=== PATIENT | female | born 1950 | race Caucasian/White ===

== ENCOUNTER 2018-07-24 07:28 | Day surgery (SDC) | payer MEDICARE, OTHER ==
[~2018-07-24 07:28] MED LIST: CYCLOPENTOLATE 1% OPHTH DROPS 2 ML ONE; KETOROLAC 0.45% OPHTH DROPS ONE; PHENYLEPHRINE 2.5% OPHTH 2 ML DROPS ONE; PROPARACAINE 0.5% OPHTH DROPS 15 ML ONE
[2018-07-24] MEDS ORDERED: LACTATED RINGERS 500 ML IV ONE (07:50)
[2018-07-24] MEDS ORDERED: BRIMONIDINE 0.2% OPHTH DROPS 5 ML ONE (07:52)
[2018-07-24] MEDS ORDERED: TIMOLOL 0.5% OPHTH DROPS ONE (07:52)
[2018-07-24] MEDS ORDERED: EPINEPHrine 1 MG/ML AMP ONE (07:52)
[2018-07-24] MEDS ORDERED: VANCOMYCIN OPHTHALMI 8MG/0.8ML 8 MG/0.8 ML SYRINGE IO ONE (07:52)
[2018-07-24] MEDS ORDERED: TRIAMCIN/MOXIFLOX OPHTHALMIC 0.6 ML VIAL IO ONE (07:52)
[2018-07-24] MEDS ORDERED: BSS/LIDOCAINE/EPINEPHRINE 1 ML SYRINGE ONE (07:52)
--- NOTE | 2018-07-24 07:59 | ANESTHESIA ---
Pre-Anesthesia VS, & Labs - Diagnosis R senile combined cataract - Procedure R extraction cataract with IOL Height 5 ft 9 in Weight (kg) 72.3 kg 5'9" 72kg - NPO >8 hours Last Fluid Intake: sips H2O with lisinopril - Is Patient ?: No Home Medications and Allergies Home Medications: Ambulatory Orders Medication Instructions Recorded Confirmed Levothyroxine [Synthroid] 75 mcg PO QDAC 07/24/18 07/24/18 Lisinopril 10 mg PO DAILY 07/24/18 07/24/18 Levothyroxine [Synthroid] 75 mcg PO QDAC 07/24/18 Lisinopril 10 mg PO DAILY 07/24/18 Allergies/Adverse Reactions: Allergies Allergy/AdvReac Type Severity Reaction Status Date / Time Penicillins Allergy Hives Verified 07/24/18 07:52 codeine AdvReac Nausea Verified 07/24/18 07:52 Sulfa (Sulfonamide AdvReac intestinal Verified 07/24/18 07:52 Antibiotics) issues Anes History & Medical History - Anesthetic History Anesthesia Complications: reports: No previous complications Family history of Anesthesia Complications: Denies Family history of Malignant Hyperthermia: Denies - Medical History Cardiovascular: reports: Hypertension Pulmonary: reports: None Gastrointestinal: reports: None Urinary: reports: None Musculoskeletal: reports: Osteoarthritis Endocrine/Autoimmune: reports: HyPOthyroidism Psychosocial: reports: No issues indicated - Surgical History Orthopedic: Hip replacement (bilat), Other (knee scope) Exam General: Alert, Oriented x3, Cooperative, No acute distress Dental: WNL Mouth Opening: Greater than 4 Fingerbreadths Neck Mobility: Normal Mallampati classification: I Thyromental Distance: 4-6 cm Respiratory: Lungs clear, Normal breath sounds, No respiratory distress, No accessory muscle use Cardiovascular: Regular rate, Normal S1, Normal S2, No murmurs Mental/Cognitive Status: Alert/Oriented X3, Normal for patient Cognitive Status: Within normal limits Plan Anesthesia Type: MAC Consent for Procedure(s) Verified and Reviewed: Yes Code Status: Attempt Resuscitation ASA classification: 2-Mild systemic disease Is this case an emergency?: No
[2018-07-24] MEDS ORDERED: PHENYLEPHRINE 2.5% OPHTH 2 ML DROPS RIGHTEYE ONE (08:00)
[2018-07-24] MEDS ORDERED: KETOROLAC 0.45% OPHTH DROPS RIGHTEYE ONE (08:00)
[2018-07-24] MEDS ORDERED: PROPARACAINE 0.5% OPHTH DROPS 15 ML RIGHTEYE ONE (08:00)
[2018-07-24] MEDS ORDERED: CYCLOPENTOLATE 1% OPHTH DROPS 2 ML RIGHTEYE ONE (08:00)
[2018-07-24] MEDS ORDERED: MIDAZOLAM 2 MG/2 ML VIAL IVP ONE (08:30)
[2018-07-24] MEDS ORDERED: fentaNYL 100 MCG/2 ML VIAL IVP ONE (08:30)
[2018-07-24] MEDS ORDERED: BRIMONIDINE 0.2% OPHTH DROPS 5 ML OPTH ONE (08:37)
[2018-07-24] MEDS ORDERED: EPINEPHrine 1 MG/ML AMP IVP ONE (08:37)
[2018-07-24] MEDS ORDERED: BSS/LIDOCAINE/EPINEPHRINE 1 ML SYRINGE IO ONE (08:38)
[2018-07-24] MEDS ORDERED: CHONDR SULF/HYALURONATE SYRINGE IO ONE (08:38)
[2018-07-24] MEDS ORDERED: TIMOLOL 0.5% OPHTH DROPS OPTH ONE (08:38)
[2018-07-24] MEDS ORDERED: TRIAMCIN/MOXIFLOX/VANCO 1 ML VIAL IO ONE (08:39)
[2018-07-24 09:27] VITALS: BP 138/78
--- NOTE | 2018-07-24 10:32 | OPERATIVE REPORT ---
DATE OF SERVICE: 07/24/2018 Physician: Roger Milton MD PREOPERATIVE DIAGNOSIS: Visually significant cataract, right eye. This was her first cataract surge ry. POSTOPERATIVE DIAGNOSIS: Visually significant cataract, right eye. This was her first cataract surg shy. NAME OF PROCEDURE: Phacoemulsification with posterior chamber intraocular lens implant, right eye. SURGEON: Roger Milton MD ANESTHESIA: Monitored anesthesia care. COMPLICATIONS: None. OPERATIVE INDICATIONS: This is a 67-year-old woman with progressive vision loss in the right eye due to 2+ nuclear sclerotic and 1+ posterior subcapsular cataract. Best corrected visual acuity was 20/ 20, with glare to 20/40 in the right eye. Indications for surgery are overall decrease in vision, di fficulty seeing words on the computer screen, difficulty reading; difficulty seeing words, closed cap tions or game scores on TV, difficulty seeing street signs, difficulty driving in low light or night, and difficulty driving at night because of headlights from other vehicles. She was consented at [facility] concerning risks and benefits of cataract surgery, after which she expressed a desire to proceed with surgery. OPERATIVE PROCEDURE: The patient was taken to OR #3 and placed under monitored anesthesia care. Khris gical timeout was conducted confirming correct patient, correct procedure, and correct surgical site. She was given topical anesthesia, and then prepped and draped in the usual sterile fashion. The ey e was entered at the 12 and 9 o'clock positions. Intracameral Shugarcaine was injected into the ante rior chamber, followed by Viscoat. A continuous-tear curvilinear capsulorrhexis was performed. The nucleus was hydrodissected and phacoemulsified. Cortex was evacuated using automated infusion and as piration. Provisc was injected in the capsular bag, and a 12.5 diopter intraocular lens inserted in the bag. Approximately 0.8 mL of a mixture of triamcinolone, moxifloxacin and vancomycin was injecte d subconjunctivally in the superior quadrant for infection and inflammation prophylaxis. I and A was used to evacuate the viscoelastic materials. The eye was inflated to physiologic pressure using bal anced salt solution, and found to be watertight. The patient was taken from the operating room in go od condition and given postoperative instructions. TD: 07/24/2018 09:00
== END 2018-07-24 07:29 | disposition home or self-care (01) ==
LOC: SDS 07:28
PROVIDERS: ATTEND Ophthalmology
PROC: 08RJ3JZ Replacement of Right Lens with Synthetic Substitute, Percutaneous Approach (ICD-10-PCS; principal; 2018-07-24 08:30)
DX: H25.811 Combined forms of age-related cataract, right eye (principal); I10 Essential (primary) hypertension; E03.9 Hypothyroidism, unspecified; Z85.3 Personal history of malignant neoplasm of breast
CPT/HCPCS: 66984; A9270; J3490; V2632

== ENCOUNTER 2018-09-18 09:05 | Day surgery (SDC) | payer MEDICARE, OTHER ==
[~2018-09-18 09:05] MED LIST changes: +BRIMONIDINE 0.2% OPHTH DROPS 5 ML ONE; +BSS/LIDOCAINE/EPINEPHRINE 1 ML SYRINGE ONE; +EPINEPHrine 1 MG/ML AMP ONE; +TIMOLOL 0.5% OPHTH DROPS ONE; +TRIAMCIN/MOXIFLOX OPHTHALMIC 0.6 ML VIAL IO ONE; +VANCOMYCIN OPHTHALMI 8MG/0.8ML 8 MG/0.8 ML SYRINGE IO ONE
[2018-09-18] MEDS ORDERED: LACTATED RINGERS 500 ML IV ONE (10:11)
[2018-09-18] MEDS ORDERED: PROPARACAINE 0.5% OPHTH DROPS 15 ML LEFTEYE ONE ×3 (10:17→11:41)
[2018-09-18] MEDS ORDERED: KETOROLAC 0.45% OPHTH DROPS LEFTEYE ONE ×2 (10:17→10:20)
[2018-09-18] MEDS ORDERED: PHENYLEPHRINE 2.5% OPHTH 2 ML DROPS LEFTEYE ONE ×2 (10:17→10:20)
[2018-09-18] MEDS ORDERED: CYCLOPENTOLATE 1% OPHTH DROPS 2 ML LEFTEYE ONE ×2 (10:17→10:20)
--- NOTE | 2018-09-18 10:59 | ANESTHESIA ---
Pre-Anesthesia VS, & Labs - Diagnosis Left senile combined cataract - Procedure Left phaco with IOL implant Vital Signs: Temp Pulse Resp BP Pulse Ox 36.4 C L 73 16 179/99 H 98 09/18/18 10:11 09/18/18 10:11 09/18/18 10:11 09/18/18 10:11 09/18/18 10:11 Height 5 ft 10 in Weight (kg) 72 kg - NPO >8 hours - Is Patient ?: No Home Medications and Allergies Levothyroxine [Synthroid] 75 mcg PO QDAC 07/24/18 Lisinopril 10 mg PO DAILY 07/24/18 Allergies/Adverse Reactions: Allergies Allergy/AdvReac Type Severity Reaction Status Date / Time Penicillins Allergy Hives Verified 09/18/18 10:12 codeine AdvReac Nausea Verified 09/18/18 10:12 Sulfa (Sulfonamide AdvReac intestinal Verified 09/18/18 10:12 Antibiotics) issues Anes History & Medical History - Anesthetic History Anesthesia Complications: reports: No previous complications Family history of Anesthesia Complications: Denies Family history of Malignant Hyperthermia: Denies - Medical History Cardiovascular: reports: Hypertension Pulmonary: reports: None Gastrointestinal: reports: None Urinary: reports: None Neuro: reports: None Musculoskeletal: reports: Osteoarthritis Endocrine/Autoimmune: reports: HyPOthyroidism Blood Disorders: reports: None Skin: reports: None Smoking Status: Never smoker Psychosocial: reports: No issues indicated - Surgical History Gynecologic: Other Orthopedic: Hip replacement, Other Exam General: Alert Dental: WNL Neck Mobility: Normal Mallampati classification: I Thyromental Distance: greater than 6 cm Respiratory: Lungs clear Cardiovascular: Regular rate Neurological: Normal speech Mental/Cognitive Status: Alert/Oriented X3 Cognitive Status: Within normal limits Plan Anesthesia Type: MAC Consent for Procedure(s) Verified and Reviewed: Yes Code Status: Attempt Resuscitation ASA classification: 2-Mild systemic disease Is this case an emergency?: No
[2018-09-18] MEDS ORDERED: MIDAZOLAM 2 MG/2 ML VIAL IVP ONE (11:39)
[2018-09-18] MEDS ORDERED: TIMOLOL 0.5% OPHTH DROPS OPTH ONE (11:40)
[2018-09-18] MEDS ORDERED: CHONDR SULF/HYALURONATE SYRINGE IO ONE (11:40)
[2018-09-18] MEDS ORDERED: EPINEPHrine 1 MG/ML AMP IVP ONE (11:40)
[2018-09-18] MEDS ORDERED: BRIMONIDINE 0.2% OPHTH DROPS 5 ML OPTH ONE (11:40)
[2018-09-18] MEDS ORDERED: BSS/LIDOCAINE/EPINEPHRINE 1 ML SYRINGE IO ONE (11:41)
[2018-09-18 12:11] VITALS: BP 160/89
--- NOTE | 2018-09-18 13:09 | OPERATIVE REPORT ---
DATE OF SERVICE: 09/18/2018 Physician: Roger Milton MD PREOPERATIVE DIAGNOSIS: Visually significant cataract, left eye. Cataract surgery was performed on the right eye in 07/24/2018. POSTOPERATIVE DIAGNOSIS: Visually significant cataract, left eye. Cataract surgery was performed on the right eye in 07/24/2018. PROCEDURE: Phacoemulsification with posterior chamber intraocular lens implant, left eye with laser assist. ANESTHESIA: Monitored anesthesia care. COMPLICATIONS: None. OPERATIVE INDICATIONS: This is a 67-year-old woman with progressive vision loss in the left eye due to 2+ nuclear sclerotic, 1-2+ cortical, and 1+ posterior subcapsular cataract. Best corrected visual acuity was 20/20 with glare to 20/40 in the left eye. INDICATIONS FOR SURGERY: Overall decrease in vision, difficulty seeing words on the computer screen, difficulty reading, difficulty seeing words, closed captions or game scores on TV; difficulty seeing street signs, difficulty driving in low light or at night, difficulty driving at night because of he adlights from other vehicles and/or street lights, and difficulty with glare or bright lights in any situation. She was consented at length concerning risks and benefits of cataract surgery, after whic h she expressed a desire to proceed with surgery. OPERATIVE PROCEDURE: The patient was taken to OR #3 and placed under monitored anesthesia care. Khris gical timeout was conducted confirming correct patient, correct procedure, and correct surgical site. She was placed under the LenSx laser and her eye was docked to the laser interface. The laser perf ormed a capsulotomy, lens softening, phaco wounds and arcuate keratotomy incisions. She was then mov ed to the operating microscope, given topical anesthesia, and then prepped and draped in the usual [facility] fashion. The eye was entered at the 6 and 3 o'clock positions. Intracameral Shugarcaine was i njected into the anterior chamber, followed by Viscoat. A capsulorrhexis created by the LenSx laser was removed from the anterior chamber. Nucleus was hydrodissected and phacoemulsified. The cortex w as evacuated using automated infusion and aspiration. Provisc was injected into the capsular bag, an d a 14.5 diopter intraocular lens was inserted into the bag. Approximately 0.8 mL of a mixture of tr iamcinolone, moxifloxacin, and vancomycin was injected subconjunctivally in the superior quadrant for infection or inflammation prophylaxis. I/A, was used to evacuate the viscoelastic materials. The e ye was inflated to physiologic pressure using balanced salt solution and found to be watertight. The patient was taken from the operating room in good condition and given postop instructions. TD: 09/18/2018 11:58
== END 2018-09-18 09:06 | disposition home or self-care (01) ==
LOC: SDS 09:05
PROVIDERS: ATTEND Ophthalmology
PROC: 08RK3JZ Replacement of Left Lens with Synthetic Substitute, Percutaneous Approach (ICD-10-PCS; principal; 2018-09-18 10:30)
DX: H25.812 Combined forms of age-related cataract, left eye (principal); I10 Essential (primary) hypertension; Z79.82 Long term (current) use of aspirin; Z79.899 Other long term (current) drug therapy; Z98.41 Cataract extraction status, right eye
CPT/HCPCS: 66984; A9270; J3490; V2632

== ENCOUNTER 2022-03-06 09:40 | Outpatient (CLI) | payer MEDICARE, OTHER ==
[2022-03-06 14:28] LABS: BASOPHILS % (AUTO) 0.8 %; EOSINOPHILS # (AUTO) 0.1 10^3/uL (0.0-0.7); EOSINOPHILS % (AUTO) 2.1 %; HCT - HEMATOCRIT 44.4 % (37.0-47.0); HGB - HEMOGLOBIN 14.3 g/dL (12.0-16.0); LYMPHOCYTES # (AUTO) 0.8 10^3/uL (1.5-3.5); LYMPHOCYTES % (AUTO) 15.9 %; MEAN CORPUSCULAR HEMOGLOBIN 30.1 pg (27.0-31.0); MEAN CORPUSCULAR HGB CONC 32.2 g/dL (32.0-36.0); MEAN CORPUSCULAR VOLUME 93.5 fL (81.0-99.0); MEAN PLATELET VOLUME 10.7 fL (7.9-10.8); MONOCYTES # (AUTO) 0.6 10^3/uL (0.0-1.0); MONOCYTES % (AUTO) 11.5 %; NEUTROPHILS # (AUTO) 3.3 10^3/uL (1.5-6.6); NEUTROPHILS % (AUTO) 69.3 %; PLT - PLATELET COUNT 209 10^3/uL (130-450); RED BLOOD COUNT 4.75 10^6/uL (4.20-5.40); WHITE BLOOD COUNT 4.8 x10^3/uL (4.8-10.8)
[2022-03-06 14:46] LABS: ALBUMIN 4.4 g/dL (3.2-5.5); ALKALINE PHOSPHATASE 38 IU/L (42-121); ALT ALANINE AMINOTRANSFERASE 18 IU/L (10-60); AST ASPARTATE AMINOTRANSFERASE 20 IU/L (10-42); BILIRUBIN,TOTAL 0.8 mg/dL (0.2-1.0); BUN - BLOOD UREA NITROGEN 12 mg/dL (6-20); CALCIUM 9.9 mg/dL (8.5-10.3); CARBON DIOXIDE - CO2 26 mmol/L (21-32); CHLORIDE 105 mmol/L (101-111); CHOL/HDL RATIO 3.3 (<4.4); CHOLESTEROL 250 mg/dL; CREATININE 0.6 mg/dL (0.4-1.0); GFR - MDRD 98 (>89); GLUCOSE 93 mg/dL (70-100); HDL CHOLESTEROL 76 mg/dL; LDL CHOLESTEROL,CALCULATED 152 mg/dL; SODIUM 140 mmol/L (135-145); TOTAL PROTEIN 6.6 g/dL (6.7-8.2); TRIGLYCERIDES 108 mg/dL; VLDL CHOLESTEROL 22 mg/dL
[2022-03-06 14:55] LABS: THYROID STIMULATING HORMONE 3.85 uIU/mL (0.34-5.60)
== END 2022-03-06 09:41 | disposition home or self-care (01) ==
LOC: LAB.S 09:40
PROVIDERS: ATTEND Nurse Practitioner Family
DX: I10 Essential (primary) hypertension (principal); E03.9 Hypothyroidism, unspecified; E78.5 Hyperlipidemia, unspecified; F41.9 Anxiety disorder, unspecified; M85.80 Other specified disorders of bone density and structure, unspecified site
CPT/HCPCS: 36415; 80053; 80061; 83721; 84443; 85025

== ENCOUNTER 2022-04-26 09:05 | Outpatient (CLI) | payer MEDICARE, OTHER ==
[2022-04-26 15:01] LABS: ALBUMIN 4.3 g/dL (3.2-5.5); ALBUMIN/GLOBULIN RATIO 1.8 (1.0-2.2); ALKALINE PHOSPHATASE 37 IU/L (42-121); ALT ALANINE AMINOTRANSFERASE 21 IU/L (10-60); AST ASPARTATE AMINOTRANSFERASE 21 IU/L (10-42); BILIRUBIN,TOTAL 0.7 mg/dL (0.2-1.0); BUN - BLOOD UREA NITROGEN 10 mg/dL (6-20); CALCIUM 9.7 mg/dL (8.5-10.3); CARBON DIOXIDE - CO2 28 mmol/L (21-32); CHLORIDE 107 mmol/L (101-111); CHOLESTEROL 155 mg/dL; CREATININE 0.7 mg/dL (0.4-1.0); GFR - MDRD 82 (>89); GLUCOSE 97 mg/dL (70-100); HDL CHOLESTEROL 79 mg/dL; LDL CHOLESTEROL,CALCULATED 65 mg/dL; LDL/HDL RATIO 0.8 (<4.4); SODIUM 141 mmol/L (135-145); TOTAL PROTEIN 6.7 g/dL (6.7-8.2); TRIGLYCERIDES 56 mg/dL; VLDL CHOLESTEROL 11 mg/dL
== END 2022-04-26 09:06 | disposition home or self-care (01) ==
LOC: LAB.S 09:05
PROVIDERS: ATTEND Nurse Practitioner Family
DX: E78.5 Hyperlipidemia, unspecified (principal)
CPT/HCPCS: 36415; 80053; 80061; 83721

== ENCOUNTER 2022-07-19 09:39 | Outpatient (CLI) | payer MEDICARE, OTHER ==
--- NOTE | 2022-07-19 12:56 | DEXA Report ---
PROCEDURE: Dexa Spine and/or Hip INDICATIONS: OSTEOPENIA TECHNIQUE: Dual energy x-ray absorptiometry (DXA) was performed on a [employer]. Regions measur ed are the AP Spine, femoral neck, and if needed forearm. COMPARISON: DEXA, 06/10/2020. FINDINGS: Left forearm was obtained is that of left hip. Lumbar Spine: Bone Mineral Density 1.288 g/cm/cm,T score 0.9, normal. Left forearm: Bone Mineral Density 0.304 g/cm/cm, T score -2.5, osteoporosis. (T score greater or equal to -1.0: NORMAL) (T score from -1.1 to -2.4: OSTEOPENIA) (T score less than or equal to -2.5 to: OSTEOPOROSIS) Impression: Based on WHO criteria, the patient is osteoporotic. Compared to the last exam on 06/10/2020, the rene ent's bone density in left radius has declined although not significant by statistical analysis. Patients with diagnosis of osteoporosis or osteopenia should have regular bone mineral density assess ment. For those eligible for Medicare, routine testing is allowed once every 2 years. Testing frequ ency can be increased for patients who have rapidly progressing disease or for those who are receivin g medical therapy to restore bone mass. Reviewed by: Marbella Smith MD on 07/19/2022 12:55 PM PDT Approved by: Marbella Smith MD on 07/19/2022 12:55 PM PDT Station ID: [id number]
== END 2022-07-19 09:40 | disposition home or self-care (01) ==
LOC: DI 09:39
PROVIDERS: ATTEND Nurse Practitioner Family
DX: M85.89 Other specified disorders of bone density and structure, multiple sites (principal); M81.0 Age-related osteoporosis without current pathological fracture

== ENCOUNTER 2023-05-03 11:35 | Outpatient (CLI) | payer MEDICARE, OTHER ==
--- NOTE | 2023-05-03 15:07 | Ultrasound Report ---
PROCEDURE: Abdomen Limited INDICATIONS: BLOATING SYMPTOM, WEIGHT LOSS, ABD SYPTOMS TECHNIQUE: Real-time focused scanning was performed of the abdomen, with image documentation. COMPARISONS: None. FINDINGS: Liver: Liver measures 17 cm. Right lobe cyst measuring up to 1 cm. Slightly increased echotexture. Gallbladder: Gallbladder polyp measuring up to 7 mm. This appears sessile. Comet tail artifact is pre sent. Biliary ducts: Intrahepatic bile ducts are non-dilated. Extrahepatic bile duct caliber measures 3.4 mm. Normal is 6-7 mm or less in diameter, or 10 mm or less post-cholecystectomy. Pancreas: Visualized portions of the pancreas are sonographically normal. Right kidney: Normal in size and echotexture. Right kidney measures 10 cm long. No hydronephrosis or nephrolithiasis. No solid masses. No complex renal cystic lesions which require follow-up. Aorta: Visualized aorta is normal in caliber at less than 3 cm. IVC: Intrahepatic inferior vena cava is patent. Miscellaneous: No free abdominal fluid. IMPRESSION: No acute sonographic abnormality. Suspected gallbladder fundus sessile polyp measuring up to 7 mm, co nsider one-year follow-up per latest SRU guidelines. This could represent cholesterolosis. Slightly increased hepatic echogenicity, possibly fibrofatty infiltration. No biliary ductal dilation. Reviewed by: Aristides Luther MD on 05/03/2023 3:06 PM PDT Approved by: Aristides Luther MD on 05/03/2023 3:06 PM PDT Station ID: [id number]
== END 2023-05-03 11:36 | disposition home or self-care (01) ==
LOC: DI 11:35
PROVIDERS: ATTEND Internal Medicine
DX: R14.0 Abdominal distension (gaseous) (principal); R63.4 Abnormal weight loss; R19.8 Other specified symptoms and signs involving the digestive system and abdomen

== ENCOUNTER 2024-07-10 10:18 | Outpatient (CLI) | payer MEDICARE, OTHER ==
[2024-07-10 10:29] LABS: BASOPHILS % (AUTO) 0.5 %; EOSINOPHILS # (AUTO) 0.1 10^3/uL (0.0-0.7); EOSINOPHILS % (AUTO) 2.1 %; HCT - HEMATOCRIT 41.7 % (37.0-47.0); HGB - HEMOGLOBIN 13.2 g/dL (12.0-16.0); LYMPHOCYTES # (AUTO) 0.8 10^3/uL (1.5-3.5); MEAN CORPUSCULAR HGB CONC 31.7 g/dL (32.0-36.0); MEAN CORPUSCULAR VOLUME 94.8 fL (81.0-99.0); MEAN PLATELET VOLUME 10.3 fL (7.9-10.8); MONOCYTES # (AUTO) 0.7 10^3/uL (0.0-1.0); MONOCYTES % (AUTO) 11.4 %; NEUTROPHILS # (AUTO) 4.6 10^3/uL (1.5-6.6); NEUTROPHILS % (AUTO) 72.7 %; PLT - PLATELET COUNT 190 10^3/uL (130-450); RED CELL DISTRIBUTION WIDTH 12.6 % (12.0-15.0); WHITE BLOOD COUNT 6.3 x10^3/uL (4.8-10.8)
[2024-07-10 10:38] LABS: BILIRUBIN,URINE NEGATIVE (NEGATIVE); GLUCOSE, URINE (UA) NEGATIVE (NEGATIVE); KETONES,URINE (UA) NEGATIVE (NEGATIVE); LEUKOCYTE ESTERASE, URINE NEGATIVE (NEGATIVE); NITRITE,URINE NEGATIVE (NEGATIVE); OCCULT BLOOD,URINE NEGATIVE (NEGATIVE); PROTEIN,URINE NEGATIVE (NEGATIVE); UROBILINOGEN,URINE 0.2 (NORMAL) E.U./dL (NORMAL)
[2024-07-10 10:44] LABS: CLARITY,URINE CLEAR (CLEAR)
[2024-07-10 10:58] LABS: CREATININE 0.6 mg/dL (0.6-1.3); POTASSIUM 3.9 mmol/L (3.5-4.5)
[2024-07-10 13:50] LABS: ESTIMATED AVERAGE GLUCOSE 100 mg/dL (70-100); HEMOGLOBIN A1c% 5.1 % (4.27-6.07)
== END 2024-07-10 10:19 | disposition home or self-care (01) ==
LOC: LAB 10:18
PROVIDERS: ATTEND Orthopaedic Surgery
DX: Z01.812 Encounter for preprocedural laboratory examination (principal); R73.9 Hyperglycemia, unspecified; N39.0 Urinary tract infection, site not specified
CPT/HCPCS: 36415; 80048; 81001; 81003; 83036; 85025

== ENCOUNTER 2024-07-10 10:29 | Outpatient (CLI) | payer MEDICARE, OTHER | END 2024-07-10 10:30 | disposition home or self-care (01) | LOC: RT 10:29 | PROVIDERS: ATTEND Orthopaedic Surgery | DX: Z01.818 Encounter for other preprocedural examination (principal); Z01.812 Encounter for preprocedural laboratory examination; R73.9 Hyperglycemia, unspecified; N39.0 Urinary tract infection, site not specified | CPT/HCPCS: 36415; 80048; 81001; 81003; 83036; 85025; 93005 ==

== ENCOUNTER 2024-07-12 13:17 | Outpatient (CLI) | payer MEDICARE, OTHER ==
--- NOTE | 2024-07-12 14:59 | Ultrasound Report ---
PROCEDURE: Carotid Doppler Complete INDICATIONS: CAROTID BRUIT TECHNIQUE: Color and pulse Doppler interrogation was performed of both carotid systems, with image documentation and velocity measurements. COMPARISON: None. FINDINGS: Right side: Common carotid artery peak systolic velocity: 58 cm/sec. Internal carotid artery peak systolic velocity: 71 cm/sec. Internal carotid artery end diastolic velocity: 22 cm/sec. External carotid artery peak systolic velocity: 82 cm/sec. ICA/CCA peak systolic ratio: 1.2 . Wharton scale imaging description: Minimal calcific plaque at the bulb. Percent internal carotid artery stenosis: Less than 50%. Vertebral artery: Flow direction is antegrade. Left side: Common carotid artery peak systolic velocity: 66 cm/sec. Internal carotid artery peak systolic velocity: 244 cm/sec. Internal carotid artery end diastolic velocity: 46 cm/sec. External carotid artery peak systolic velocity: 147 cm/sec. ICA/CCA peak systolic ratio: 4.3 . Wharton scale imaging description: Coarse calcific plaque at the bulb. Percent internal carotid artery stenosis: Greater than 70% . Vertebral artery: Flow direction is antegrade. IMPRESSION: 1. In the right internal carotid artery, there is no significant stenosis based on peak systolic [place] criteria. 2. In the left internal carotid artery, there is greater than 70% stenosis based on peak systolic santosh ocity criteria. 3. Antegrade blood flow within the right vertebral artery. 4. Antegrade blood flow within the left vertebral artery. The estimate of stenosis included in the report of the imaging study was calculated using the [facility]-end orsed standards of carotid artery stenosis. Reviewed by: Angelia Desouza MD on 07/12/2024 1:58 PM GILL Approved by: Angelia Desouza MD on 07/12/2024 1:58 PM GILL Station ID: [id number]
== END 2024-07-12 13:18 | disposition home or self-care (01) ==
LOC: DI 13:17
PROVIDERS: ATTEND Registered Nurse
DX: I65.23 Occlusion and stenosis of bilateral carotid arteries (principal)
CPT/HCPCS: 93880